=== PATIENT | female | born 1965 | race Caucasian/White ===

== ENCOUNTER 2017-09-21 08:17 | Day surgery (SDC) | payer BC ==
[2017-09-21] MEDS ORDERED: Lactated Ringers 1,000 ML IV SCH (08:30)
[2017-09-21] MEDS ORDERED: Sodium Chloride 0.9% 10 ML Syringe FLUSH PRN (08:30)
--- NOTE | 2017-09-21 11:53 | PCM.OPNOTE ---
- General Post-Op/Procedure Note Date of Surgery/Procedure: 09/21/17 Operative Procedure(s): c scope Findings: normal exam Pre Op Diagnosis: screening Post-Op Diagnosis: nl study Anesthesia Technique: MAC Primary Surgeon: Gurjit Thacker Anesthesia Provider: Janice Mejía Pathology: none Complications: None Condition: Good Free Text/Narrative:: see dictation
--- NOTE | 2017-09-21 12:13 | OR ---
DATE OF OPERATION: 09/21/2017 SURGEON: Gurjit Thacker MD PROCEDURE PERFORMED: Colonoscopy. PREOPERATIVE DIAGNOSIS: Need for screening C scope. POSTOPERATIVE DIAGNOSIS: Normal study. INDICATIONS FOR PROCEDURE: This is a 52-year-old white female who presents for initial screening colonoscopy. She was offered and accepted same. DESCRIPTION OF PROCEDURE: After an excellent IV sedation was administered, digital rectal exam was performed. No marked abnormality was noted. Flexible colonoscope was inserted and advanced without difficulty to the patient's cecum. The prep was excellent. The following findings were noted: Ascending colon, unremarkable. Transverse colon, unremarkable. Descending colon, unremarkable. Sigmoid and rectum, unremarkable. On the basis of these findings, recommendations to repeat colonoscopy in 10 years. /[id number] /DEB
== END 2017-09-21 13:03 | disposition home or self-care (01) ==
LOC: FB.SDS 08:17
PROVIDERS: ATTEND Surgery
DX: Z12.11 Encounter for screening for malignant neoplasm of colon (principal); J45.909 Unspecified asthma, uncomplicated; Z79.899 Other long term (current) drug therapy
CPT/HCPCS: 45378; J7120